=== PATIENT | male | born 1990 | race Caucasian/White ===

== ENCOUNTER 2024-09-05 00:25 | Emergency (ER) | payer MEDICAID ==
[~2024-09-05] VITALS: Ht 165.1 cm; Wt 76.0 kg
[2024-09-05 00:33] VITALS: O2SAT 98
[2024-09-05 00:57] VITALS: TEMP 36.89184
[2024-09-05 01:13] LABS: CHLORIDE 108 mEq/L (98-107); POTASSIUM 3.9 mEq/L (3.5-5.1); SODIUM 140 mEq/L (136-145)
[2024-09-05 01:14] LABS: CARBON DIOXIDE 28 mEq/L (21-32)
[2024-09-05 01:19] LABS: CREATININE 0.9 mg/dL (0.6-1.3); GLUCOSE 71 mg/dL (70-105)
[2024-09-05 01:20] LABS: UREA NITROGEN BLOOD 14 mg/dL (9-23)
[2024-09-05 01:21] LABS: ALANINE AMINOTRANSFERASE 28 IU/L (10-49); ALBUMIN 4.3 g/dL (3.2-4.8); ASPARTATE AMINOTRANSFERASE 21 IU/L (<34)
[2024-09-05 01:22] LABS: BILIRUBIN TOTAL 0.8 mg/dL (0.1-1.0); PROTEIN TOTAL 7.4 g/dL (6.0-8.3)
[2024-09-05 01:26] LABS: TROPONIN I HIGH SENSITIVITY < 4 ng/L (3.0-53)
[2024-09-05 01:29] LABS: BASOPHILS % 0.4 % (0.0-2.0); DIFFERENTIAL COMMENT 0; EOSINOPHILS % 1.2 % (0.0-5.0); HEMATOCRIT. 42.2 % (42.0-52.0); HEMOGLOBIN. 14.4 g/dL (14.0-18.0); LYMPHOCYTES % 43.5 % (20.0-50.0); MEAN CORPUSCULAR HEMOGLOBIN 25.6 pg (28.0-32.0); MEAN CORPUSCULAR HGB CONC 34.1 g/dL (31.0-37.0); MEAN PLATELET VOLUME 9.2 fl (7.4-10.4); MONOCYTES % 10.4 % (2.0-8.0); NEUTROPHILS % 44.5 % (40.0-76.0); PLATELET 199 x1000/uL (130-400); RED BLOOD CELL COUNT 5.63 mill/uL (4.7-6.1); RED CELL DISTRIBUTION WIDTH 14.4 % (11.6-14.6); WHITE BLOOD COUNT 8.9 x1000/uL (4.5-11.0)
[2024-09-05] MEDS: SODIUM CHLORIDE 0.9% 1,000 ML IV ONE (01:32)
[2024-09-05] MEDS: KETOROLAC 15MG/ML VIAL IV ONE (01:33)
[2024-09-05] MEDS ORDERED: NAPR-420 MT (02:42)
[2024-09-05] MEDS: ACETAMINOPHEN 1000MG/100ML 100 ML IV NR (02:56)
[2024-09-05] MEDS: KETOROLAC 15MG/ML VIAL IV NR (02:56)
[2024-09-05 04:00] LABS: TROPONIN I HIGH SENSITIVITY < 4 ng/L (3.0-53)
[2024-09-05 05:03] VITALS: BP 109/65; PULSE 59; RESP 14; O2SAT 96
== END 2024-09-05 05:17 | disposition home or self-care (01) ==
LOC: ER 00:43
DX: R07.89 Other chest pain (principal); I10 Essential (primary) hypertension; Z00.00 Encounter for general adult medical examination without abnormal findings
CPT/HCPCS: 80053; 85025; 85379; 84484; 36415; 71045; 93005; 96374; 99285; J1885; J7030; Z7610 ×2; J0131